=== PATIENT | male | born 1990 | race Caucasian/White ===

== ENCOUNTER → 2016-10-09 | Outpatient (CLI) | payer OTHER ==
[2016-10-09 12:00] LABS: AUTOMATED NEUTROPHIL # 2.3 TH/MM3 (1.8-7.7); BASOPHIL % 0.3 % (0.0-2.0); EOSINOPHIL # 0.1 TH/MM3 (0-0.4); EOSINOPHIL % 3.1 % (0.0-4.0); HEMATOCRIT 46.9 % (39.0-51.0); HEMO FLAGS DIFF FINAL; LYMPH % 29.1 % (9.0-44.0); LYMPHOCYTE # 1.1 TH/MM3 (1.0-4.8); MEAN CELL VOLUME 89.7 FL (80.0-100.0); MEAN CORPUSCULAR HEMOGLOBIN 29.3 PG (27.0-34.0); MEAN CORPUSCULAR HGB CONC 32.7 % (32.0-36.0); MONO % 8.9 % (0.0-8.0); NEUT % 58.6 % (16.0-70.0); PLATELET COUNT 190 TH/MM3 (150-450); RED BLOOD COUNT 5.23 MIL/MM3 (4.50-5.90); RED CELL DISTRIBUTION WIDTH 11.8 % (11.6-17.2); WHITE BLOOD COUNT 3.8 TH/MM3 (4.0-11.0)
[2016-10-09 13:01] LABS: ANION GAP 7 MEQ/L (5-15); AST (GOT) 19 U/L (15-37); BLOOD UREA NITROGEN 12 MG/DL (7-18); CHLORIDE 103 MEQ/L (98-107); GLUCOSE,FASTING 83 MG/DL (74-99); POTASSIUM 3.9 MEQ/L (3.5-5.1); SODIUM (NA) 141 MEQ/L (136-145)
[2016-10-09 13:06] LABS: ALKALINE PHOSPHATASE 63 U/L (45-117); ALT (GPT) 31 U/L (12-78); GLOMERULAR FILTRATION RATE 133 ML/MIN (>89); HDL CHOLESTEROL 64.1 MG/DL (40.0-60.0); LDL CHOLESTEROL 75 MG/DL (0-99); TOTAL BILIRUBIN ADULT 0.6 MG/DL (0.2-1.0)
[2016-10-09 13:48] LABS: BLOOD, URINE NEG (NEG); COMMENT (UR) CULT NOT INDICATED; CULTURE IF INDICATED CULT NOT INDICATED; GLUCOSE,URINE NEG (NEG); KETONE, URINE NEG (NEG); NITRITE,URINE NEG (NEG); URINE COLOR YELLOW (YELLW/STRAW)
== END ==
LOC: OLAB 11:37
PROVIDERS: ATTEND Nurse Practitioner Family
DX: Z76.89 Persons encountering health services in other specified circumstances (principal)
CPT/HCPCS: 80053; 80061; 81001; 85025